=== PATIENT | female | born 1980 | race Caucasian/White ===

== ENCOUNTER 2020-09-06 09:22 | Outpatient (CLI) | payer BC, SELFPAY ==
--- NOTE | ~2020-09-06 | XR_ITS ---
EXAMINATION: XR chest 2V DATE: 09/06/2020 09:51 INDICATION: COVID-19 pneumonia. Cough. TECHNIQUE: Frontal and lateral views of the chest were obtained. COMPARISON: None. FINDINGS: There are airspace opacities in the mid and lower lung zones. There is mild scarring at the lung apices. No pleural effusion or pneumothorax. The heart size is normal. Breast implants are note d. IMPRESSION: 1. Airspace opacities in the mid and lower lung zones, consistent with pneumonia. Reviewed, dictated and finalized at location A. IMPRESSION: 1. Airspace opacities in the mid and lower lung zones, consistent with pneumoni a.
[2020-09-06 10:17] LABS: Basophils Percent Auto 0.2 % (0.2-1.2); Hematocrit 43.7 % (37.0-47.0); Hemoglobin 14.1 g/dL (12.0-15.0); Immature Granulocyte Absolute 0.03 K/mm3 (0.00-0.031); Immature Granulocyte Percent A 0.5 % (0-0.5); Lymphocytes Absolute Auto 0.46 K/mm3 (0.9-3.2); Lymphocytes Percent Auto 8.2 % (18.3-44.2); Mean Corpuscular HGB Conc 32.3 g/dl (32-36); Mean Corpuscular Hemoglobin 30.3 pg (26-34); Mean Platelet Volume 9.3 fl (7.4-10.4); Monocytes Absolute Auto 0.2 K/mm3 (0.1-0.6); Monocytes Percent Auto 3.6 % (2.6-8.5); Neutrophils Absolute Auto 4.9 K/mm3 (1.3-6.7); Neutrophils Percent Auto 87.5 % (45.5-73.1); Platelet Count Result 141 k/mm3 (150-375); Red Blood Count 4.65 M/mm3 (4.2-5.4); Red Cell Distribution Width 13.1 % (11.5-14.5); White Blood Count 5.6 K/mm3 (4.5-10.0)
[2020-09-06 10:23] LABS: Add Urine Microscopic? YES; Appearance Urine Clear (Clear); Bacteria Urine Trace /hpf; Bilirubin Urine Negative (Negative); Blood Urine Negative (Negative); Color Urine Yellow (Yellow); Glucose Urine UA Negative (Negative); Ketones Urine 2+ mg/dL (Negative); Leukocyte Esterase Ur Negative LEU/UL (NEGATIVE); Mucus Urine Rare /lpf; Nitrate Urine Negative (Negative); Protein Urine 1+ mg/dL (Negative); RBC Urine 0-2 /hpf (0-2); Specific Grav Ur 1.013 (1.001-1.035); Squamous Epithelial Cell Urine Many /hpf (Few); Urobilinogen Urine Negative mg/dL (<2.0); WBC Urine 0-3 /hpf (0-3)
[2020-09-06 10:34] LABS: Alanine Aminotransferase 25 U/L (4-35); Albumin Level 4.2 g/dL (3.5-5.1); Alkaline Phosphatase 58 U/L (38-126); Anion Gap 10 mmol/L (8-16); Aspartate Amino Transferase 50 U/L (14-36); Bilirubin,Total 0.4 mg/dL (0.2-1.3); Blood Urea Nitrogen 8 mg/dL (7-17); Calcium 9.4 mg/dL (8.4-10.2); Carbon Dioxide 30 mmol/L (22-30); Chloride 96 mmol/L (98-107); Estimated Glomerular Filt Rate > 60; Glucose 112 mg/dL (65-105); Potassium 3.6 mmol/L (3.4-5.0); Sodium 136 mmol/L (137-145)
== END 2020-09-06 09:23 | disposition home or self-care (01) ==
LOC: ANHIMG 09:39
PROVIDERS: PCP Physician Assistant; Visit Provider Physician Assistant
DX: J98.4 Other disorders of lung (principal); R05 Cough; R50.9 Fever, unspecified
CPT/HCPCS: 36415; 71046; 80053; 81001; 85025; 87086

== ENCOUNTER 2021-01-01 09:24 | Outpatient (CLI) | payer BC, SELFPAY ==
--- NOTE | 2021-01-01 | EST_ITS ---
Patient Info Name: Radha Tinoco Age: 40 years : 1980 Gender: Female Ht: 69 in Wt: 141 lbs BSA: 1.76 m2 HR: 67 bpm BP: 117 / 78 mmHg Heart Rhythm: Sinus Rhythm Exam Date: 01/01/2021 10:38 AM Exam Location: [facility] Stress Patient Status: Outpatient Admit Date: 01/01/2021 Staff Ordering Physician: Elsa, [place] AYALA Attending Provider: ElsaGeorgia PA-C Exercise Technologist: Zeenat Acosta CT Exercise Physician: Pramod Almaraz DO Exam Type: CA stress test treadmill Study Info Indications R07.89 - Other chest pain An exercise stress test was performed. Summary 1. 1. Negative Venkat exercise stress test for ischemic ST changes by ECG criteria. 2. 2. Good functional capacity, achieving 12 METs of workload. 3. 3. Appropriate HR response to exercise. 4. 4. Appropriate HR recovery at 1 minute post exercise. 5. 5. No imaging with stress testing. 6. 6. Patient informed of the above results. Protocol: Venkat Stress ECG Details Stage: REST Duration (min): 0 min : 46 sec Speed (mph): 0.0 Grade (%): 0 HR (bpm): 67 SBP (mmHg): 117 DBP (mmHg): 78 METS: --- Stage: REST Duration (min): 8 min : 1 sec Speed (mph): 0.0 Grade (%): 0 HR (bpm): 83 SBP (mmHg): 117 DBP (mmHg): 78 METS: --- Stage: STAGE 1 Duration (min): 1 min : 0 sec Speed (mph): 1.7 Grade (%): 10 HR (bpm): 105 SBP (mmHg): 117 DBP (mmHg): 78 METS: --- Stage: STAGE 1 Duration (min): 2 min : 0 sec Speed (mph): 1.7 Grade (%): 10 HR (bpm): 111 SBP (mmHg): 117 DBP (mmHg): 78 METS: --- Stage: STAGE 1 Duration (min): 3 min : 0 sec Speed (mph): 1.7 Grade (%): 10 HR (bpm): 118 SBP (mmHg): 131 DBP (mmHg): 70 METS: --- Stage: STAGE 2 Duration (min): 1 min : 0 sec Speed (mph): 2.5 Grade (%): 12 HR (bpm): 116 SBP (mmHg): 131 DBP (mmHg): 70 METS: --- Stage: STAGE 2 Duration (min): 2 min : 0 sec Speed (mph): 2.5 Grade (%): 12 HR (bpm): 119 SBP (mmHg): 135 DBP (mmHg): 70 METS: --- Stage: STAGE 2 Duration (min): 3 min : 0 sec Speed (mph): 2.5 Grade (%): 12 HR (bpm): 128 SBP (mmHg): 135 DBP (mmHg): 70 METS: --- Stage: STAGE 3 Duration (min): 1 min : 0 sec Speed (mph): 3.4 Grade (%): 14 HR (bpm): 141 SBP (mmHg): 124 DBP (mmHg): 69 METS: --- Stage: STAGE 3 Duration (min): 2 min : 0 sec Speed (mph): 3.4 Grade (%): 14 HR (bpm): 141 SBP (mmHg): 124 DBP (mmHg): 69 METS: --- Stage: STAGE 3 Duration (min): 3 min : 0 sec Speed (mph): 3.4 Grade (%): 14 HR (bpm): 149 SBP (mmHg): 146 DBP (mmHg): 70 METS: --- Stage: STAGE 4 Duration (min): 1 min : 0 sec Speed (mph): 4.2 Grade (%): 16 HR (bpm): --- SBP (mmHg): 146 DBP (mmHg): 70 METS: ---
== END 2021-01-01 09:25 | disposition home or self-care (01) ==
PROVIDERS: PCP Physician Assistant; Visit Provider Physician Assistant
DX: R07.89 Other chest pain (principal)
CPT/HCPCS: 93017

== ENCOUNTER 2022-08-29 13:05 | Outpatient (CLI) | payer BC, SELFPAY ==
--- NOTE | ~2022-08-29 | US_ITS ---
EXAMINATION: US breast RT limited HISTORY: Follow-up for probably benign right breast masses TECHNIQUE: Limited right breast ultrasound is performed. COMPARISON: 04/07/2022 FINDINGS: The previously described mass at the 11:00 location, 6 cm from the nipple is no longer evid ent. There are multiple small cysts in the upper outer quadrant of the right breast. No suspicious cy stic or solid mass is identified. IMPRESSION: No suspicious sonographically detected right breast mass identified. BI-RADS Category 2: Benign finding(s). Reviewed, dictated and finalized at location A.
== END 2022-08-29 13:06 | disposition home or self-care (01) ==
LOC: ANHIMG 13:06
PROVIDERS: PCP Physician Assistant; Visit Provider Student in an Organized Health Care Education/Training Program
DX: N63.10 Unspecified lump in the right breast, unspecified quadrant (principal)
CPT/HCPCS: 76642

== ENCOUNTER 2024-06-13 15:39 | Outpatient (CLI) | payer BC, SELFPAY ==
--- NOTE | ~2024-06-13 | XR_ITS ---
Lumbosacral Spine: AP and lateral views Clinical History: Pain Findings: The normal lordotic curve is maintained. The vertebral bodies and posterior elements are i ntact. The intervertebral disc spaces are preserved. The sacroiliac joints are normally outlined. Impression: No significant abnormality. Reviewed, dictated and finalized at [facility]. Impression: No significant abnormality.
--- OUTSIDE RECORDS SUMMARY | 2024-06-13 17:34 | XMS_ITS | Encounter Summary ---
Author Organization [facility] Healthcare Address [address] [place] [address] Care Team Providers Care Nurse Practitioner Manager Name Role Phone Unavailable Primary Care Provider Unavailabl e Reason for Visit * Diagnostic Imaging (Routine) - Closed Specialty Diagnoses / Procedures Referred By Ashvin sin Referred To Contact Diagnoses Mass of right breast, unspecified quadrant Procedures Breast Imaging Screening Outside Reference Heidi Hogan NP Phone: tel: fax: Referral ID Status Reason Start Date Expiration Date Visits Re quested Visits Authorized [id number] Closed 05/14/2022 06/13/2023 1 1 Encounter Details Date Type Department Care Team (Late st Contact Info) Description 12/26/2015 Hospital Encounter [facility] [address] [place] [address] [phone] Social History Tobacco Use Types Packs/Day Years Used Date Smoking Tobacco: Never Smokeless Tobacco: Never Alcohol Use Standard Drinks/Week Comments No 0 (1 standard drink = 0.6 oz pur e alcohol) Comments No Sex and Gender Information Value Date Recorded Sex Assigned at Not on file 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 Gender Identity Not on file Sexual Orientation Not on file documented as of this encounter Plan of Treatment Not on file documented as of this encounter Procedures Procedure Name Priority Date/Time Associated Diagnosis Comments BREAST IMAGING MG SCREENING OUTSIDE REFERENCE Schedule Routine, Read Routine (OP Routine) 12/26/2015 12:00 AM CDT Mass of right breast, unspecified quadrant documented in this encounter Results * Breast Imaging Screening Outside Reference (12/26/2015 12:00 AM CDT) Impressions RADSylMAMMOCHASE - 05/14/2022 7:52 AM CDT These images are for Reference purposes only and have not been reviewed by [facility] Radiology. There will be no report generated by a [facility] Radiologist. Narrative RADSylMAMMOCHASE - 05/14/2022 7:52 AM CDT EXAMINATION: Images For Reference Purposes Only us Heidi Hogan ACCOUNT MANAGER SALES REPRESENTATIVE IMG MAMMO PROCEDURES Fin al Result [facility] documented in this encounter Visit Diagnoses Not on filedocumented in this encounter Additional Health Concerns Infection Onset Date Last Indicated Resolved Time COVID: Suspected 08/29/2020 08/29/2020 08/29/2020 6:04 PM CDT COVID19 08/29/2020 08/29/2020 09/12/2020 3:05 AM CDT COVID: Suspected 02/12/2021 02/12/2021 02/12/2021 5:41 PM SPOOLING OPERATOR COVID: Suspected 04/29/2024 04/29/2024 04/29/2024 6:14 PM SPOOLING OPERATOR COVID19 04/29/2024 04/29/2024 05/09/2024 3:06 AM CDT documented as of this encounter
--- OUTSIDE RECORDS SUMMARY | 2024-06-13 17:34 | XMS_ITS | Data Portability ---
Author Organization [place] [facility] Address [address] [place] [address] Care Team Providers Care Laborer Name Role Phone LG DOWELL Primary Care Provider Unavailab le Assessment No assessment recorded. Plan of Treatment Reminders Order Date Submit Date Provider Last Modified By Organization Details Last Modified Time Details Appointments None recorded. Lab bacterial vaginosis + vaginitis panel, vaginal 2015 016 [facility], [address] [place] [address], [address], [place], [address], 6 07:20:31 Referral None recorded. Procedures None recorded. Surgeries None recorded. Imaging None recorded. Medication Orders Diflucan 150 mg tablet 2015 016 [id number], [address], [place], [place], [id number], 5 15:31:46 Patient TargetsNo targets recorded. Patient Instructions Encounter Date Encounter Id Patient Instructions Last Modified By Organization Details Last Modified Time 06/05/2015 [id number] vaginal yeast infection: care instructions [email or web address] Not available 06/05/2015 12:14:49 Reason for Referral None Reported. Results Created Date Observation Date Name Description Value Unit Range Abnormal Flag Note LastModifiedBy Organization Detail LastModifiedTime 06/05/19 16 06/07/2015 bacte rial vagin osis + vagin itis panel , vagin al atopobium vaginae LOW - 0 score Not Available [facility] ([facility]) [address] [facility], [place], [address], 06/08/2015 07:20:30 06/05/19 16 06/07/2015 bacte rial vagin osis + vagin itis panel , vagin al bvab 2 LOW - 0 score Not Available [facility] ([facility]) [address] [place], [address], 06/08/2015 07:20:30 06/05/19 16 06/07/2015 bacte rial vagin osis + vagin itis panel , vagin al megasphaera 1 LOW - 0 score CALCU LATE TOTAL SCORE BY TAMAR Horn THE 3 INDIV IDUAL BACTE RIAL VAGIN OSIS (BV) MARKE R SCORE S TOGET HER. TOTAL SCORE IS INTER PRETE D FOLLO WS: TOTAL SCORE 0-1: INDIC ATES THE ABSEN CE OF BV. TOTAL SCORE 2: INDET ERMIN ATE FOR BV. ADDIT IONAL CLINI MICHELE DATA SHOUL D BE EVALU ATED TO ESTAB MARGARITO A DIAGN OSIS. TOTAL SCORE 3-6: INDIC ATES THE PRESE NCE OF BV. THIS TEST WAS DEVEL OPED AND ITS PERFO RMANC E NEETU CTERI STICS DETER MINED BY [facility]. IT HAS NOT BEEN CLEAR ED OR APPRO JENARO BY THE FOOD AND DRUG ADMIN ISTRA TION. THE FDA HAS DETER MINED THAT SUCH CLEAR ANCE OR APPRO TED IS NOT NECES KATLYN. Not Available [facility] ([facility]) [address] [facility], [place], [address], 06/08/2015 07:20:30 06/05/19 16 06/07/2015 bacte rial vagin osis + vagin itis panel , vagin al es albicans, BLU POSITI VE negati ve abnormal Not Available [facility] ([facility]) [address] [facility], [place], [address], 06/08/2015 07:20:30 06/05/19 16 06/07/2015 bacte rial vagin osis + vagin itis panel , vagin al es glabrata, BLU NEGATI VE negati ve THIS TEST WAS DEVEL OPED AND ITS PERFO RMANC E NEETU CTERI STICS DETER MINED BY [facility]. IT HAS NOT BEEN CLEAR ED OR APPRO JENARO BY THE FOOD AND DRUG ADMIN ISTRA TION. THE FDA HAS DETER MINED THAT SUCH CLEAR ANCE OR APPRO TED IS NOT PARRISH POTTS. Not Available [facility] ([facility]) [address] [place], [address], 06/08/2015 07:20:30 06/05/19 16 06/07/2015 bacte rial vagin osis + vagin itis panel , vagin al trich vag by BLU NEGATI VE negati ve Not Available [facility] ([facility]) [address] [place], [address], 06/08/2015 07:20:30 06/05/19 16 06/07/2015 bacte rial vagin osis + vagin itis panel , vagin al chlamydia trachomatis, BLU NEGATI VE negati ve Not Available [facility] ([facility]) [address] [facility], [place], [address], 06/08/2015 07:20:30 06/05/19 16 06/07/2015 bacte rial vagin osis + vagin itis panel , vagin al neisseria gonorrhoeae, BLU NEGATI VE negati ve Not Available [facility] ([facility]) [address] [place], [address], 06/08/2015 07:20:30 04/30/19 25 04/29/2024 SARS- CoV+S ARS-C oV-2 (COVI D-19) Ag [Pres ence] in Respi rator y syste m speci men by Rapid immun oassa y influenza A Ag, POC Negati ve text: negati ve Influ james A Ag, POC Negat adele Negat adele [facility] Not Available Not Available 05/09/2024 10:17:36 04/30/19 25 04/29/2024 SARS- CoV+S ARS-C oV-2 (COVI D-19) Ag [Pres ence] in Respi rator y syste m speci men by Rapid immun oassa y influenza B Ag, POC Negati ve text: negati ve Influ james B Ag, POC Negat adele Negat adele [facility] Not Available Not Available 05/09/2024 10:17:36 04/30/1904/29/2024 SARS- CoV+S ARS-C oV-2 (COVI D-19) Ag [Pres ence] in Respi rator y syste m speci men by Rapid immun oassa y covid-19 Ag POC Positi ve text: presum ptive negati ve, invali d abnormal COVID -19 Ag POC Posit adele (A) Presu mptiv e Negat adele, Inval id [facility] Not Available Not Available 05/09/2024 10:17:36 04/30/1904/29/2024 SARS- CoV+S ARS-C oV-2 (COVI D-19) Ag [Pres ence] in Respi rator y syste m speci men by Rapid immun oassa y interpretati on and review of laboratory results Abnorm al Not Available Not Available 10:17:36 Result Notes None recorded. Problems Name Problem SNOMED Code Status Onset Date Resolution Date Notes Provider Name and Address Organization Details Recorded Time Body mass index 20-24 - normal 716139736 Active 2024 Melita Drew MA null, [place] 15:31:39 Positive screening for depression on PHQ-9 (Patient Health Questionnai re 9) 5232375791846 00 Active 2024 MARCOS Lazo Attn: Ernie horn,[address] [place], [address], [place] 5 15:58:27 Generalized anxiety disorder 64040651 Active 2024 MARCOS Lazo Attn: Ernie horn,[address] [place], [address], [place] 16:13:35 Panic attack 412185787 Active 2024 MARCOS Lazo Attn: Ernie horn,[address], [place], [address], [facility] 5 16:13:36 Vaginal discharge 635468937 Active Samia Grover null, [place] 6 12:14:49 Candidiasis of vagina 17037176 Active Samia Grover null, [place] 6 12:14:49 Problem Notes None recorded. Procedures Surgical History Date Name Laterality Status Provider Name and Address Organization Details Recorded Time Caesarean Section completed Joanne Dwyer [facility] 06/05/2015 11:23:31 Other completed Joanne Dwyer [facility] 2015 11:23:31 Imaging Results None recorded. Procedure Notes None recorded. Medical Equipment None Reported. Allergies No known drug allergies Medications Name Sig Start Date Stop Date Status Note LastModified by Organization Details LastModified Time prednisone 20 mg tablet Take 2 tablets every day by oral route for 5 days, for acute low back strain. 2024 active Not Available Not Available Not Avai lable Diflucan 150 mg tablet Take 1 tablet every 72 hours by oral route. 05/06 completed Not Available Not Available Not Available methocarbamo l 750 mg tablet Take 1 tablet 3 times a day by oral route. 2024 active Not Available Not Available Not Avai lable fluoxetine 10 mg capsule TAKE 1 CAPSULE BY MOUTH EVERY DAY active Not Available Not Available No t Available Vitals Date Recorded Body height Body mass index (BMI) Body weight Respiratory rate Oxygen saturation Oxygen saturation in Arterial blood by Pulse oximetry Heart rate Systolic blood pressure Diastolic blood pressure Provider Name and Address Organization Details Last Updated DateTime 5 175.26 cm 22.4 kg/m2 34688.0 4 g 18 /min 98 % 98 % 70 /min 118 mm[Hg] 82 mm[Hg] Melita Drew MA [facility] 5 15:35:26 Date Recorded Body height Body mass index (BMI) Body weight Systolic blood pressure Diastolic blood pressure Provider Name and Address Organization Details Last Updated DateTime 06/05/2015 175.26 cm 21 kg/m2 30091.11 654 g 110 mm[Hg] 70 mm[Hg] Joanne Dwyer [facility] 6 11:23:31 Social History Question Answer Notes LastModified by Organizat ion Details LastModified Time Tobacco Smoking Status Never Smoker Joanne Dwyer [facility], [facility] 06/05/2015 11:23:31 Do You Have An Advance Directive? No Information n ot available 05/06/2024 What Is Your Level Of Alcohol Consumption? None Information not available 06/05/2015 Are You Blind Or Do You Have Difficulty Seeing? No Information n ot available 05/06/2024 What Is Your Level Of Caffeine Consumption? Occasional Information not available 05/06/2024 How Much Tobacco Do You Chew? None Information not available 06/05/2015 In The 14 Days Before Symptom Onset, Have You Had Close Contact With A Laboratory-confirm ed COVID-19 While That Case Was Ill? No Information n ot available 05/06/2024 In The 14 Days Before Symptom Onset, Have You Had Close Contact With A Person Who Is Under Investigation For COVID-19 While That Person Was Ill? No Information not available 05/06/2024 Have You Been To An Area Known To Be High Risk For COVID-19? No Information not available 05/06/2024 Are You Currently Employed? Yes Information not available 06/05/2015 Are You Deaf Or Do You Have Serious Difficulty Hearing? No Information not available 05/06/2024 What Type Of Diet Are You Following? SPECIFIC Information n ot available 06/05/2015 What Is Your Occupation? Yes Information not available 05/06/2024 Are There Any Guns Present In Your Home? No Information not available 05/06/2024 What Was The Date Of Your Most Recent Tobacco Screening? 05/06/2024 Information not available 05/06/2024 How Many Children Do You Have? 4 Information not available 06/05/2015 Performs Monthly Self-breast Exam? Yes Information no t available 06/05/2015 Do You Use Protection During Sex? No Information not available 06/05/2015 What Is Your Relationship Status? Information not available 06/05/2015 Do You Use Your Seat Belt Or Car Seat Routinely? Yes Information not available 05/06/2024 Seat Belts Used Routinely Yes Information not available 06/05/2015 Are You Sexually Active? Yes Information not available 06/05/2015 Do You Have Smoke And Carbon Monoxide Detectors In Your Home? Yes Information not available 05/06/2024 Do You Use Any Illicit Or Recreational Drugs? No Information not available 05/06/2024 Do You Use Sunscreen Routinely? Yes Information not available 06/05/2015 Has Tobacco Cessation Counseling Been Provided? No Information not available 05/06/2024 Do You Or Have You Ever Used Any Other Forms Of Tobacco Or Nicotine? No Information not available 05/06/2024 Sex: Unknown Functional Status Question Answer Note LastModified by Organization D etails LastModified Time Are you able to care for yourself? Yes Information not available 05/06/2024 What is your exercise level? Moderate Information not available 06/05/2015 Mental Status None recorded. Family History Relationship Description Onset Age of this Age Resolved Age Notes LastModified by Organization Details LastModified Time Mother Diabetes mellitus cspiller Not available 2015 11:23:31 Mother Hypertensive disorder cspiller Not available 2015 11:23:31 Maternal Grandmother Diabetes mellitus cspiller Not available 2015 11:23:31 Medical History Condition Response Coronary Artery Disease N Other N High Blood Pressure N Atrial Fibrillation N Breast Cancer N Depression N COPD N Blood Clots N Lung Disease N Breast Problem N Anesthesia Complications N Headaches/Migraines N Anxiety Disorder Y Muscle, Joint, or Bone Problems N Infertility N Polyps N Acid Reflux (GERD) N Cancer N Stroke N Endometriosis N High Cholesterol N Liver Disease N Headaches N Kidney or Bladder Problems N Thyroid Problems N GI Problems N Acne N Have you had a mammogram in the last yea r? N Eating Disorder N Skin Problems N Anemia N Heart Attack ([place]) N Ovarian Cancer N Diabetes N Blood Transfusions N Seizures/Epilepsy N Have you had a colonoscopy in the last 1 0 years? N Abuse/Domestic Violence N Asthma N Allergies N Have you had a PSA blood test in the las t year? N Hepatitis N Heart Disease N Pre-Eclampsia N Osteoporosis N Heart Failure N Gynecological History Statement/Question Response Menses Monthly Y Age at Menarche 12 Current Control Method Tubal Ligat ion Date of LMP 04/08/2024 LMP Definite Sexually Active? Y Obstetrics History GPAL:G 3 P 3 0 0 3 Type Value Full Term 3 Induced 0 Spontaneous 0 Premature 0 Living 3 Total 3 Past Encounters Encounter ID Performer Location Encounter Start Date Encounter Closed Date Diagnosis/Indication Diagnosis SNOMED-CT Code Diagnosis ICD10 Code Diagnosis Note [id number] Samia [facility] ([facility] 122) 2 [facility] [email or web address] [address] [place] [address] 06/05/2015 11:07:42 06/05/2015 13:58:20 Gynecologic examination 98023442 Z01.419 Vaginal discharge 403995 006 N89.8 Candidiasis of vagina 71 665443 B37.3 [id number] MARCOS Lazo [facility] [address] [place] [address] 05/06/2024 15:11:31 05/06/2024 16:24:32 Body mass index 20-24 - normal 072264670 Z68.22 Positive s creening for depression on PHQ-9 (Patient Health Questionnaire 9) 5726544845 00815 Z13.31 Patient scored very high on her screening today with 16. This is acutely exacerbate d due to the stress with her work. She really does not want to have to resort to taking medication as she does not like the way the side effects are for those medication s as well. She has tried multiple agents in the years past with provider. [facility] 845590704 Z00.00 [facility] Generalize d anxiety disorder 37845694 F41.1 Patient does have a longstandi ng history of seeing primary care provider even at the last office location. She has been treated for her generalize d anxiety disorder for over 5 years. She currently is not on any medicines because she tries to manage her anxiety without pharmacolo gic agents and using cognitive behavioral therapy options. 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 COVID-19 619587110 U07.1 Patient did have COVID most recently and work note was provided for her to excuse her during that time of infection and risk for exposures to other people Health Concerns Section Related Observation LastModified by Organization Detai ls LastModified Time None Recorded Concern Status LastModified by Organization Details LastModified Time None Recorded Advance Directives Directive N: Payers Encounter Date Sequence Insurance Name Policy Number Policy Contreras Covered Member ID Contreras Member ID Guarantor Name 06/05/2015 1 [place] [id number] Lg Tinoco [id number] Lg Tinoco 05/06/2024 1 [place] [id number] Lg Tinoco [id number] Lg Earnest Notes Date Note Type Note Provider Name and Address Organization Details Recorded Time 06/05/2015 text/html Annual GYNReport ed bypatient.History:no gynecologic complaints Menstrual cycle:Normal menses Urinary symptoms:No hematuria; No incontinence Vulva:No genital lesion Vagina:White;Vaginal itching; vaginal irritation and clumpy discharge Breast:No breast pain; No breast lump; No nipple discharge Current Contraception:Monoga mous relationship Sexual complaints:No sexual complaints Menopausal Symptoms:No menopausal symptoms Psychological symptoms:No depression; No anxiety; No PMDD Preventive measures:Encourage self breast examination; Encourage regular exerciseNotes:no major complaints. Samia carver [place] 06/05/2015 12:30:41 05/06/2024 text/html Anxiety/Depressi onRe ported bypatient.Quality:sy mptoms worse during the day;increased anxiety;panic symptoms Severity:denies suicidal ideations;interferen ce with sleep;interference with work Duration:frequent; symptoms lasting over 2 weeks Onset/Timing:still present Context:major life stressors;trouble at work(Patient is being treated differently at work she is having dirty looks being given to her she is being treated unfairly when it comes to requesting time off. Some people get time off for the same reasons that she gets denied. 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 She tries to help people at work and she gets dirty looks being given to her. She is even having some panic attacks) Modifying Factors:social support Associated Symptoms:denies homicidal ideations;weight gain ( lbs);emotional lability;anxietyNote s:Patient is interested in trying to obtain accommodations to boom worker due to her underlying anxiety that she has been treated for several years by this PCP. Her anxiety is exacerbating significantly due to the work environment. MARCOS Lazo Attn: [address] [place], [address], [facility] - [facility] 05/24/2024 13:54:05 OBGyn Episode No OBEpisode recorded.
--- OUTSIDE RECORDS SUMMARY | 2024-06-13 17:34 | XMS_ITS | Referral Summary ---
Author Organization [facility] [place] [facility] [place] Address [address] [place] [address] Care Team Providers Care General Scrap Worker Name Role Phone Angie Hunter Primary Care Pr ovider Encounters Date Type Department Care Team Description 04/29/2024 6:00 PM COMBINATION WELDER Office Visit [facility] [place] [address] [place] [address] Celina Shelton NP Sore throat (Primary Dx); COVID; Acute cough from Last 3 Months Allergies No known active allergies Medications benzonatate (TESSALON) 100 mg capsuleIndicati ons:Cough Take 1 capsule (100 mg total) by mouth 3 (three) times a day as needed for cough 42 capsule 04/29/2024 Active Active Problems Problem Noted Date Diagnosed Date Incisional hernia 09/27/2012 Overview (05/28/2016): Incisional hernia Social History Tobacco Use Types Packs/Day Years Used Date Smoking Tobacco: Never Smokeless Tobacco: Never Tobacco Cessation:Counseling Given: Not Answered Alcohol Use Standard Drinks/Week Comments No 0 (1 standard drink = 0.6 oz pur e alcohol) Comments No Sex and Gender Information Value Date Recorded Sex Assigned at Not on file Legal Sex Female 1:50 AM COMBINATION WELDER Gender Identity Not on file Sexual Orientation Not on file Last Filed Vital Signs Vital Sign Reading Time Taken Comments Blood Pressure 110/60 04/29/2024 5:52 PM COMBINATION WELDER Pulse 75 04/29/2024 5:52 PM COMBINATION WELDER Temperature 36.7 C (98.1 F) 04/29/2024 5:52 PM COMBINATION WELDER Respiratory Rate 16 04/29/2024 5:52 PM COMBINATION WELDER Oxygen Saturation 99% 04/29/2024 5:52 PM COMBINATION WELDER Inhaled Oxygen Concentration - - Weight 70.8 kg (156 lb) 04/29/2024 5:52 PM COMBINATION WELDER Height 175.3 cm (5' 9 ) 04/29/2024 5:52 PM COMBINATION WELDER Body Mass Index 23.04 04/29/2024 5:52 PM COMBINATION WELDER Plan of Treatment Not on file Procedures Procedure Name Priority Date/Time Associated Diagnosis Comments POC INFLUENZA A/B, COVID-19 ANTIGEN Routine 04/29/2024 6:14 PM COMBINATION WELDER Sore throat POCT RAPID STREP Routine 04/29/2024 6:09 PM COMBINATION WELDER Sore throat from Last 3 Months Results * (ABNORMAL) POC Influenza A/B, COVID-19 antigen (04/29/2024 6:14 PM COMBINATION WELDER) Influenza A Ag, POC Negative Negative [facility] Influenza B Ag, POC Negative Negative [facility] COVID-19 Ag POC Positive(A) Presumptive Negative, Invalid [facility] Nasal 04/29/2024 6:14 PM COMBINATION WELDER Celina Shelton NP POINT OF CARE TEST ORDERAB LES Final Result [facility] [address] [place] [address] * POCT rapid strep A (04/29/2024 6:09 PM COMBINATION WELDER) Rapid Strep A, POC Negative Negative Swab 04/29/2024 6:09 PM COMBINATION WELDER Celina Shelton NP POINT OF CARE TEST ORDERAB LES Final Result from Last 3 Months Insurance [employer] Care Teams General Scrap Worker Relationship Specialty Start Date End Date Angie Hunter PA PCP - General Physician Cosmetic Maker 08/29/20
--- OUTSIDE RECORDS SUMMARY | 2024-06-13 17:34 | XMS_ITS | Clinical Summary ---
Author Organization [address] l[address] Address [address] [place] [address] Care Team Providers Care Air Valve Repairer Name Role Phone Angie Hunter Primary Care Pr ovider Allergies No known active allergies Medications benzonatate (TESSALON) 100 mg capsuleIndicati ons:Cough Take 1 capsule (100 mg total) by mouth 3 (three) times a day as needed for cough 42 capsule 04/29/2024 Active Active Problems Problem Noted Date Diagnosed Date Incisional hernia 09/27/2012 Overview (05/28/2016): Incisional hernia Encounters Date Type Department Care Team Description 04/29/2024 6:00 PM DEFENSIVE SECONDARY COACH Office Visit [facility] [place] [address] [place] [address] Celina Shelton, MIGUEL Sore throat (Primary Dx); COVID; Acute cough from Last 3 Months Surgical History Surgery Date Site/Laterality Comments SECTION section x 2 Medical History Medical History Date Comments No pertinent past medical history Family History Medical History Relation Name Comments Heart attack Father Myocardial infa rction; Cause of : Myocardial infarction Coronary artery disease Other 1 Fami ly history of Coronary artery disease; Diabetes Other 2 Family history of Diabetes mellitus; Relation Name Status Comments Father (Age 70) Other 1 Other 2 Social History Tobacco Use Types Packs/Day Years Used Date Smoking Tobacco: Never Smokeless Tobacco: Never Tobacco Cessation:Counseling Given: Not Answered Alcohol Use Standard Drinks/Week Comments No 0 (1 standard drink = 0.6 oz pur e alcohol) Comments No Sex and Gender Information Value Date Recorded Sex Assigned at Not on file Legal Sex Female 1:50 AM DEFENSIVE SECONDARY COACH Gender Identity Not on file Sexual Orientation Not on file Obstetrics History Last Filed Vital Signs Vital Sign Reading Time Taken Comments Blood Pressure 110/60 04/29/2024 5:52 PM DEFENSIVE SECONDARY COACH Pulse 75 04/29/2024 5:52 PM DEFENSIVE SECONDARY COACH Temperature 36.7 C (98.1 F) 04/29/2024 5:52 PM DEFENSIVE SECONDARY COACH Respiratory Rate 16 04/29/2024 5:52 PM DEFENSIVE SECONDARY COACH Oxygen Saturation 99% 04/29/2024 5:52 PM DEFENSIVE SECONDARY COACH Inhaled Oxygen Concentration - - Weight 70.8 kg (156 lb) 04/29/2024 5:52 PM DEFENSIVE SECONDARY COACH Height 175.3 cm (5' 9 ) 04/29/2024 5:52 PM DEFENSIVE SECONDARY COACH Body Mass Index 23.04 04/29/2024 5:52 PM DEFENSIVE SECONDARY COACH Plan of Treatment Health Maintenance Due Date Last Done Comments Breast Cancer Screening-Mammogram 1979 Cervical Cancer Screening 1979 Colon Cancer Screening-Colonoscopy 1979 Depression Screening 1979 Hepatitis C Screening 1979 DTaP/Tdap/Td Vaccine (1 - Tdap) 1990 Varicella Vaccines (1 of 2 - 13+ 2-dose series) 1992 Hepatitis B Screening 1997 Regular Well Visit/Exam 18-64 1997 Influenza Vaccine (Season Ended) 2024 HPV Vaccines Aged Out No longer eligi ble based on patient's age to complete this topic Pneumococcal vaccine <65 Aged Out No longer eligible based on patient's age to complete this topic Procedures Procedure Name Priority Date/Time Associated Diagnosis Comments POC INFLUENZA A/B, COVID-19 ANTIGEN Routine 04/29/2024 6:14 PM DEFENSIVE SECONDARY COACH Sore throat POCT RAPID STREP Routine 04/29/2024 6:09 PM DEFENSIVE SECONDARY COACH Sore throat from Last 3 Months Results * (ABNORMAL) POC Influenza A/B, COVID-19 antigen (04/29/2024 6:14 PM DEFENSIVE SECONDARY COACH) Influenza A Ag, POC Negative Negative [facility] Influenza B Ag, POC Negative Negative [facility] COVID-19 Ag POC Positive(A) Presumptive Negative, Invalid [facility] Nasal 04/29/2024 6:14 PM DEFENSIVE SECONDARY COACH Celina Shelton NP POINT OF CARE TEST ORDERAB LES Final Result [facility] [address] [place] [address], [facility] * POCT rapid strep A (04/29/2024 6:09 PM DEFENSIVE SECONDARY COACH) [facility] Rapid Strep A, POC Negative Negative Swab 04/29/2024 6:09 PM DEFENSIVE SECONDARY COACH Celina Shelton NP POINT OF CARE TEST ORDERAB LES Final Result from Last 3 Months Insurance [employer] Care Teams Air Valve Repairer Relationship Specialty Start Date End Date Angie Hunter PA PCP - General Physician Meat Counter Clerk 08/29/20
--- OUTSIDE RECORDS SUMMARY | 2024-06-13 17:34 | XMS_ITS | Clinical Summary ---
Author Organization [employer] [facility] Address [address] [place] [address] [place] [address] Care Team Providers Care Production Packager Name Role Phone Unavailable Primary Care Provider Unavailabl e Social History Tobacco Use Types Packs/Day Years Used Date Smoking Tobacco: Never Assessed Comments Unknown Sex and Gender Information Value Date Recorded Sex Assigned at Not on file Legal Sex Female 7:42 AM ENGINEERING DOCUMENTATION SPECIALIST Gender Identity Not on file Sexual Orientation Not on file Plan of Treatment Health Maintenance Due Date Last Done Comments DTAP/TDAP/TD VACCINES (1 - Tdap) 1998 HEPATITIS B VACCINES (1 of 3 - 19+ 3-dose series) 1998 HPV/Cotest (21-29) 2000 CERVICAL CANCER SCREENING 2009 HPV/Cotest (30-65) 2009 PAP SMEAR 2009 BREAST CANCER SCREENING 04/07/2023 04/07/2022 INFLUENZA VACCINE (#1) 2023 COLORECTAL SCREENING 2024 Colorectal Cancer Screening 2024 FIT-DNA Q 3 years 2024 FIT/FOBT Q 1 year 2024 Flex Sig/CT Colonography Q 5 years 2024 HPV VACCINES Aged Out No longer eligi ble based on patient's age to complete this topic Procedures Procedure Name Priority Date/Time Associated Diagnosis Comments MAMMO 3D SERENITY DIAGNOSTIC BILAT W OR WO CAD Routine 04/07/2022 10:34 AM ENGINEERING DOCUMENTATION SPECIALIST Breast mass in female from Last 3 Months or Most Recently Relevant to Health Maintenance Results * (ABNORMAL) MAMMO DIAG BILAT 3D SERENITY W OR WO CAD (04/07/2022 10:34 AM ENGINEERING DOCUMENTATION SPECIALIST) Anatomical Region Laterality Modality Breast Bilateral Mammography 04/07/2022 11:1 0 AM ENGINEERING DOCUMENTATION SPECIALIST Impressions 04/07/2022 12:20 PM ENGINEERING DOCUMENTATION SPECIALIST : Multiple abnormalities are noted at the upper right breast ultrasonographically. Please see the separate left breast ultrasound report. There is one dominant complex cystic lesion which correlates with the area of palpable concern. Ultrasound-guided biopsy of this abnormality would be recommended. OVERALL FINAL ASSESSMENT: BI-RADS CATEGORY 4A: Suspicious Findings (Low suspicion). RECOMMENDATIONS: Ultrasound-guided biopsy of a dominant lesion at the 11:00 right breast and six-month follow-up right breast ultrasound with regard to additional probably benign findings. Narrative 04/07/2022 12:20 PM ENGINEERING DOCUMENTATION SPECIALIST EXAM: BILATERAL DIAGNOSTIC FULL-FIELD DIGITAL MAMMOGRAPHY WITH CAD WITH 3D TOMOSYNTHESIS DATE: 04/07/2022 10:34 AM HISTORY: The patient feels a palpable area at approximately the 11:00 right breast TECHNIQUE: Mediolateral oblique and craniocaudal views of both breasts were performed using full field digital mammography. Low-dose full-field digital breast tomosynthesis examination was performed with 2D and 3D acquisitions. Examination is read in conjunction with computer aided detection. COMPARISON: 2016 BREAST COMPOSITION: Heterogeneously dense, which limits the sensitivity of mammography. FINDINGS: There are bilateral subpectoral silicone implants which do appear to be intact. Noted on the MLO projection, an area of density is noted at the upper right breast. No suspicious masses, suspicious microcalcifications or areas of architectural distortion are noted of the left breast. Ultrasound was performed through the entire upper right breast. Please see the separate right breast ultrasound report. Juan Ramon Garcia MD MAMMO ORDERABLES Final Result from Last 3 Months or Most Recently Relevant to Health Maintenance Insurance [facility] BLUE ACCESS CHOICE
== END 2024-06-13 15:40 | disposition home or self-care (01) ==
PROVIDERS: PCP Physician Assistant; Visit Provider Physician Assistant
DX: M54.50 Low back pain, unspecified (principal)
CPT/HCPCS: 72100